=== PATIENT | male | born 1975 | race Caucasian/White ===

== ENCOUNTER 2017-03-13 18:58 | Emergency (ER) | payer BC ==
--- NOTE | 2017-03-13 19:08 | EDM.PDOC ---
ED HPI GENERAL MEDICAL PROBLEM - General Stated Complaint: LT SIDE PAIN Time Seen by Provider: 03/13/17 19:08 Source of Information: Reports: Patient History Limitations: Reports: No Limitations - History of Present Illness INITIAL COMMENTS - FREE TEXT/NARRATIVE: HISTORY AND PHYSICAL: []he was coughing and felt pain to his left lower rib cage 2 days ago History of Present Illness: 41-year-old male presenting with left-sided rib pain Review of Systems: As per history of present illness and below otherwise all systems reviewed and negative. Past medical history: As per history of present illness and as reviewed below otherwise noncontributory. Surgical history: As per history of present illness and as reviewed below otherwise noncontributory. Social history: No reported history of drug or alcohol abuse. Family history: As per history of present illness and as reviewed below otherwise noncontributory. Physical exam: Alert and oriented male who is answering questions appropriately speaks in full sentences without any shortness of breath HEENT: Atraumatic, normocehpalic, pupils reactive, negative for conjunctival pallor or scleral icterus, mucous membranes moist, throat clear, neck supple, nontender, trachea midline. Lungs: Clear to auscultation, breath sounds equal bilaterally, chest tender with light palpation to the lateral lower left rib cage. Heart: S1S2, regular, negative for clicks, rubs, or JVD. Abdomen: Soft, nondistended, nontender. Negative for masses or hepatossplenmegaly. Negative for costovertebral tenderness. Pelvis: Stable nontender. Genitourinary: Deferred. Rectal: Deferred Extremities: Atraumatic, negative for cords or calf pain. Neurovascular unremarkable. Neuro: Awake, alert, oriented. Cranial nerves II through XII unremarkable. Cerebellum unremarkable. Motor and sensory unremarkable throughout. Exam nonfocal. Diagnostics: [X-ray left ribs] Therapeutics: [Toradol 60 mg IM] Impression: [Muscle strain] Plan: []Discharge to home Diclofenac twice a day Follow-up with your primary care next week Definitive disposition and diagnosis as appropriate pending reevaluation and review of above. Onset: Sudden Duration: Day(s): (3) Location: Reports: Back Left Flank Pain Score (Numeric/FACES): 6 - Related Data Allergies Allergy/AdvReac Type Severity Reaction Status Date / Time No Known Allergies Allergy Verified 03/13/17 19:14 Home Meds: Home Meds Diclofenac Sodium [IJD: Diclofenac Sodium] 75 mg PO .TWICE DAILY W MEALS #20 tab.ec 03/13/17 [Rx] ED ROS GENERAL - Review of Systems Review Of Systems: ROS reveals no pertinent complaints other than HPI. ED EXAM, GENERAL - Physical Exam Exam: See Below (See dictation) Course - Vital Signs Last Recorded V/S: Last Vital Signs Temp 36.6 C 03/13/17 19:09 Pulse 82 03/13/17 19:09 Resp 12 03/13/17 19:09 BP 154/108 H 03/13/17 19:09 Pulse Ox 96 03/13/17 19:09 - Orders/Labs/Meds Orders: Active Orders 24 hr Category Date Time Status Ribs 2V wo Chest Lt [CR] Stat Exams 03/13/17 19:22 Taken Meds: Medications Discontinued Medications Generic Name Dose Route Start Last Admin Trade Name Freq PRN Reason Stop Dose Admin Ketorolac Tromethamine 60 mg 03/13/17 19:22 03/13/17 19:27 Toradol IM 03/13/17 19:23 60 mg ONETIME ONE Administration Departure - Departure Time of Disposition: 20:55 Disposition: Home, Self-Care 01 Condition: Good Clinical Impression: Muscle strain - Discharge Information Prescriptions: Diclofenac Sodium [IJD: Diclofenac Sodium] 75 mg PO .TWICE DAILY W MEALS #20 tab.ec Instructions: Muscle Strain, [id number] Referrals: PCP,None [Primary Care Provider] - Forms: ED Department Discharge - My Orders Last 24 Hours: My Active Orders 03/13/17 19:22 Ribs 2V wo Chest Lt [CR] Stat - Assessment/Plan Last 24 Hours: My Active Orders 03/13/17 19:22 Ribs 2V wo Chest Lt [CR] Stat
[2017-03-13] MEDS ORDERED: Ketorolac 60 MG/2 ML SDV IM ONE (19:22)
--- NOTE | 2017-03-15 18:07 | CR ---
EXAM DATE: 03/13/17 PATIENT'S AGE: 41 Patient: IBETH FLOWERS Facility: [place], [place] Site . Site : [id number] Study: XRay Chest Left RIBS [id number]/20/2018 8:05:30 PM Ordering Physician: Doctor Sood Final Report: INDICATION: Left rib pain TECHNIQUE: Chest and left ribs 3 views. COMPARISON: None available FINDINGS: Cardiovascular and mediastinum: Upper limits of normal cardiac size. A tortuous aorta. Lungs and pleural spaces: Lungs are clear. No sign of infiltrate or mass. No sign of pleural effusion. No pneumothorax. Bones and soft tissues: Detailed oblique images of the left ribs demonstrate no fractures or bone lesions. IMPRESSION: Unremarkable chest and left ribs. Dictated by Sawyer Barnard MD @ 03/13/2017 8:40:08 PM Dictated by: Sawyer Barnard MD @ 03/13/2017 20:40:14 (Electronic Signature) Report Signed by Proxy. [email or web address]
== END 2017-03-13 21:00 | disposition home or self-care (01) ==
LOC: MW.ED 18:58
DX: S29.011A Strain of muscle and tendon of front wall of thorax, initial encounter (principal); Z79.899 Other long term (current) drug therapy; X58.XXXA Exposure to other specified factors, initial encounter
CPT/HCPCS: 71100; 96372; 99283; J1885